=== PATIENT | female | born 1955 | race Caucasian/White ===

== ENCOUNTER → 2020-07-03 | Day surgery (SDC) | payer BC ==
[~2020-07-03] MED LIST: Cyclobenzaprine 10 MG Tab PO ONE; Dexamethasone 4 MG/ML 5 ML MDV ONE; HYDROmorphone 0.5 MG/0.5 ML Syringe IVPUSH PRN; Ketamine 500 mg/10 ML MDV ONE; Ketorolac 30 MG/ML SDV ONE; Lactated Ringers 1,000 ML IV SCH; Lidocaine 1% 4 ML ONE; Lidocaine 1%/Sod Bicarbonate in NS 8.4% 1 ML Syringe IDERM PRN; Midazolam 1 MG/ML 2 ML SDV ONE; Morphine 8 MG, EPINEPHrine 0.3 MG, Cefuroxime 750 MG, Ketorolac 30 MG, Sodium Chloride ... PRN; Ondansetron 4 MG/2 ML SDV IVPUSH PRN; Ondansetron 4 MG/2 ML SDV ONE; Propofol 200 MG/20 ML SDV ONE; Sodium Chloride 0.9% 10 ML Syringe FLUSH PRN; Vancomycin 1 GM SDV ONE; ceFAZolin 1 GM Vial ONE; fentaNYL 100 MCG/2 ML SDV ONE; oxyCODONE 5 MG Tab PO PRN; traMADol 50 MG Tab PO PRN
--- NOTE | 2020-07-03 07:45 | PCM.PREANE ---
Preanesthetic Assessment - Procedure Proposed Procedure: Left Hip arthroplasty - Anesthesia/Transfusion/Family Hx Anesthesia History: Prior Anesthesia Without Reaction Family History of Anesthesia Reaction: No Transfusion History: No Prior Transfusion(s) - Review of Systems General: No Symptoms Pulmonary: No Symptoms Cardiovascular: No Symptoms Gastrointestinal: No Symptoms Neurological: No Symptoms Other: Reports: None - Physical Assessment NPO Status Date: 07/02/20 NPO Status Time: 22:00 Height: 1.73 m Weight: 83 kg ASA Class: 2 Mental Status: Alert & Oriented x3 Airway Class: Mallampati = 1 Thyro-Mental Finger Breadths: 3 Mouth Opening Finger Breadths: 3 ROM/Head Extension: Full Lungs: Clear to Auscultation, Normal Respiratory Effort Cardiovascular: Regular Rate, Regular Rhythm - Allergies Allergies/Adverse Reactions: Allergies Allergy/AdvReac Type Severity Reaction Status Date / Time codeine Allergy Hives Verified 06/30/20 14:09 Penicillins Allergy Hives Verified 06/30/20 14:09 Iodinated Contrast Media AdvReac Tachycardia Verified 06/30/20 15:28 - Blood Blood Available: No - Acknowledgements Anesthesia Type Planned: Spinal Pt an Appropriate Candidate for the Planned Anesthesia: Yes Alternatives and Risks of Anesthesia Discussed w Pt/Guardian: Yes Pt/Guardian Understands and Agrees with Anesthesia Plan: Yes PreAnesthesia Questionnaire HEENT History: Reports: Impaired Vision Cardiovascular History: Reports: High Cholesterol Respiratory History: Reports: None Gastrointestinal History: Reports: None Genitourinary History: Reports: None FLITCH HANGER History: Reports: None Musculoskeletal History: Reports: Osteoarthritis Neurological History: Reports: None Psychiatric History: Reports: None Endocrine/Metabolic History: Reports: Hypothyroidism Hematologic History: Reports: None Immunologic History: Reports: None Oncologic (Cancer) History: Reports: None Dermatologic History: Reports: None - Past Surgical History HEENT Surgical History: Reports: None Cardiovascular Surgical History: Reports: None Respiratory Surgical History: Reports: None GI Surgical History: Reports: Colonoscopy Female Surgical History: Reports: Section Male Surgical History: Reports: None Endocrine Surgical History: Reports: None Neurological Surgical History: Reports: None Musculoskeletal Surgical History: Reports: Hip Replacement, Shoulder Replacement Oncologic Surgical History: Reports: None Dermatological Surgical History: Reports: None - SUBSTANCE USE Tobacco Use Status *Q: Former Tobacco User Recreational Drug Use History: No - HOME MEDS Home Medications: Home Meds Ascorbic Acid [Vitamin C] 500 mg PO DAILY 06/30/20 [History] Cholecalciferol (Vitamin D3) [Vitamin D3] 5,000 unit PO DAILY 06/30/20 [History] Docusate Sodium [Stool Softener] 100 mg PO DAILY PRN 06/30/20 [History] Levothyroxine Sodium [Synthroid] 112 mcg PO DAILY 06/30/20 [History] Multivitamin 1 tab PO DAILY 06/30/20 [History] Ubidecarenone [Coq-10] 100 mg PO DAILY 06/30/20 [History] calcium polycarbophiL [Fiber Tabs] 625 mg PO DAILY PRN 06/30/20 [History] polyethylene glycoL 3350 [MiraLAX] 1 dose PO DAILY PRN 06/30/20 [History] Aspirin [Aspirin EC] 325 mg PO BID #70 tab 07/03/20 [Rx] Cyclobenzaprine [Flexeril] 10 mg PO BID PRN #20 tab 07/03/20 [Rx] traMADol [Ultram] 50 - 100 mg PO Q6H PRN #40 tab 07/03/20 [Rx] - CURRENT (IN HOUSE) MEDS Current Meds: Current Medications Morphine Sulfate 8 mg/Epinephrine HCl 0.3 mg/Cefuroxime Sodium 750 mg/Ketorolac Tromethamine 30 mg/Sodium Chloride 7.9 ml 0 mg .XX ASDIRECTED PRN PRN Reason: Pain Stop: 07/03/20 15:00 Lactated Ringer's (Ringers, Lactated) 1,000 mls @ 125 mls/hr IV ASDIRECTED SUSAN Stop: 07/03/20 23:00 Lidocaine/Sodium Bicarbonate (Buffered Lidocaine 1% In Ns 8.4%) 0.25 ml IDERM ONETIME PRN PRN Reason: Prior to IV Start Stop: 07/03/20 18:00 Sodium Chloride (Saline Flush) 10 ml FLUSH ASDIRECTED PRN PRN Reason: Keep Vein Open Stop: 07/03/20 18:00 Discontinued Medications Cefazolin Sodium (Ancef) Confirm Administered Dose 2 gm .ROUTE .STK-MED ONE Stop: 07/03/20 07:15 Dexamethasone (Dexamethasone) Confirm Administered Dose 20 mg .ROUTE .STK-MED ONE Stop: 07/03/20 07:15 Fentanyl (Sublimaze) Confirm Administered Dose 100 mcg .ROUTE .STK-MED ONE Stop: 07/03/20 07:09 Lidocaine HCl (Xylocaine-Mpf 1%) Confirm Administered Dose 4 mls @ as directed .ROUTE .STK-MED ONE Stop: 07/03/20 07:15 Midazolam HCl (Versed 1 Mg/Ml) Confirm Administered Dose 2 mg .ROUTE .STK-MED ONE Stop: 07/03/20 07:09 Ondansetron HCl (Zofran) Confirm Administered Dose 4 mg .ROUTE .STK-MED ONE Stop: 07/03/20 07:15 Propofol (Diprivan 20 Ml) Confirm Administered Dose 600 mg .ROUTE .STK-MED ONE Stop: 07/03/20 07:08 Tranexamic Acid (Cyklokapron) Confirm Administered Dose 1,000 mg .ROUTE .STK-MED ONE Stop: 07/03/20 07:19 Vancomycin HCl (Vancomycin) Confirm Administered Dose 1 gm .ROUTE .STK-MED ONE Stop: 07/03/20 07:19
[2020-07-03] MEDS: fentaNYL 100 MCG/2 ML SDV IVPUSH PRN ×2 (10:29→10:44)
--- NOTE | 2020-07-03 11:56 | PCM.POSTAN ---
POST ANESTHESIA ASSESSMENT - MENTAL STATUS Mental Status: Alert, Oriented - VITAL SIGNS Vital Signs: Last Vital Signs Temp 36.7 C 07/03/20 11:30 Pulse 68 07/03/20 11:30 Resp 17 07/03/20 11:30 BP 144/57 H 07/03/20 11:30 Pulse Ox 96 07/03/20 11:30 - RESPIRATORY Respiratory Status: Respiratory Rate WNL, Airway Patent, O2 Saturation Stable - CARDIOVASCULAR CV Status: Pulse Rate WNL, Blood Pressure Stable - GASTROINTESTINAL GI Status: No Symptoms - PAIN Pain Score: 3 - POST OP HYDRATION Hydration Status: Adequate & Stable - OBSERVATIONS Free Text/Narrative:: Patient doing well, eating in bed. Denies any anesthesia complications.
--- NOTE | 2020-07-03 13:21 | CR ---
Pelvis and left hip: AP view of the pelvis was obtained as well as crosstable lateral views of the left hip. Comparison: Prior CT pelvis study of 06/16/20. Findings: Right hip prosthesis is noted. Left hip prosthesis is seen which has been recently placed and shows evidence of surrounding soft tissue air. Degenerative change within the lumbar spine is seen. Pseudoarticulation is seen in the left transverse process to the sacrum. No acute osseous abnormality is otherwise seen. Impression: 1. Satisfactory appearance of recently placed left hip prosthesis. 2. Other findings as noted above which are chronic. Diagnostic code #2 MTDD
--- NOTE | 2020-07-03 13:33 | PCM48HPAN ---
Post Anesthesia Note - EVALUATION WITHIN 48HRS OF ANESTHETIC Vital Signs in Normal Range: Yes Patient Participated in Evaluation: Yes Respiratory Function Stable: Yes Airway Patent: Yes Cardiovascular Function Stable: Yes Hydration Status Stable: Yes Pain Control Satisfactory: Yes Nausea and Vomiting Control Satisfactory: Yes Mental Status Recovered: Yes Vital Signs: Last Vital Signs Temp 98.1 F 07/03/20 12:00 Pulse 78 07/03/20 12:21 Resp 16 07/03/20 12:21 BP 110/94 H 07/03/20 12:21 Pulse Ox 95 07/03/20 12:21 - COMMENTS/OBSERVATIONS Free Text/Narrative:: slight nausea- feels shaky- up with PT.
--- NOTE | 2020-07-09 16:59 | PCM.OPNOTE ---
- General Post-Op/Procedure Note Date of Surgery/Procedure: 07/03/20 Operative Procedure(s): left total hip arthroplasty with [employer] Pre Op Diagnosis: left hip osteoarthrosis Post-Op Diagnosis: Same Anesthesia Technique: Local, MAC, Spinal Primary Surgeon: Carlton Cotton Anesthesia Provider: Duane Waggoner Sports Medicine Coordinator: Rina Mcbride Sports Medicine Coordinator: Judi Warren EBL in mLs: 300 Complications: None Condition: Good Free Text/Narrative:: 50 cup 36+0 5 stem
--- NOTE | 2020-07-09 17:52 | OR ---
DATE OF OPERATION: 07/03/2020 SURGEON: Carlton Cotton MD OPERATION PERFORMED: Left total hip arthroplasty with [employer] robot[employer]. PREOPERATIVE DIAGNOSIS: Left hip osteoarthrosis. POSTOPERATIVE DIAGNOSIS: Left hip osteoarthrosis. ANESTHESIA: Local MAC with spinal. ANESTHESIA PROVIDER: Duane Waggoner. ASSISTANTS: Rina Mcbride PA-C and Judi Warren LPN ESTIMATED BLOOD LOSS: 300 mL. COMPLICATIONS: None. CONDITION: Stable. IMPLANTS: 1. Sharita size 50 mm solid Tritanium II acetabular cup. 2. [place] size 36 +0 Biolox femoral head. 3. Sharita size 5 Accolade II stem. 4. Sharita size 36 flat acetabular liner. DESCRIPTION OF PROCEDURE: The patient was identified in the preoperative holding area. Proper site was marked and identified by the surgeon. The patient was taken back to the operating theater where after adequate anesthesia, the patient was placed in the right lateral decubitus position. Axillary roll was placed. Pegs were then placed and everything was well padded. The patient's gluteal fold was parallel to the floor. Left hip was then sterilely prepped and draped in the usual sterile fashion. OR time-out was performed. The patient received 2 g of IV Ancef. After this was completed, a few fingerbreadths back from the ASIS, three 4-0 pins were placed in the iliac crest for the [place] [employer] robot[employer]. The array was then placed making sure it was down all the way onto bone. At this time, a standard posterior incision was made. This was taken down to the IT band and gluteal fascia which was incised along the incisional length. The checkpoint was placed in the greater tuberosity. Charnley retractor was placed. Takedown of the short external rotators was done from the level of the piriformis down to the lesser trochanter. Hip was then dislocated and neck cut was completed and found to be adequate. Attention was turned to the acetabulum. Anterior and posterior acetabular retractors were placed. Circumferential removal of the labrum was done at this time as well as removal of pulvinar. The patient then had 15 checkpoints done intra-articularly in the acetabulum as well as 15 surrounding the acetabulum extra-articularly. At this time, the plan was in place. The checkpoints were found to be adequate and the 50 mm reamer was loaded onto the [employer] robotic arm. This was then locked into place and reaming was done until all green was gone off the [place] robotic screen. The 50 mm cup was then impacted into place using the Sharita robotic arm and it was locked into place at 45 degrees of inclination and 20 degrees of anteversion. At this time, the 36 flat liner was impacted into place and attention was turned to the femur. A box chisel was used out laterally. Starter awl was placed down the canal starting with the 0 broach. I was able to broach up to a size 5 which was found to be rotationally and vertically stable. A 36+ 0 trial implants were then placed. The patient had adequate baptism of leg- lengths and was stable throughout range of motion. Bone hook was used to dislocate the trial implants. Size 5 Accolade II stem was then impacted into place and a 36+ 0 Biolox femoral head was impacted into place. Hip was then relocated. #5 Ethibond sutures were used for closure of the short external rotators and capsule. Periarticular injection was completed. 450 mL of Irrisept irrigation was irrigated through the hip along with 1 L pulse lavage irrigation with Ancef. Topical tranexamic acid and vancomycin powder were applied. A #2 barbed suture was used for closure of the IT band and gluteal fascia, 2-0 Vicryl was used subcutaneously, and Prineo was used for closure of the skin. The patient tolerated the procedure well and was sent to the PACU in stable condition. We did make sure to remove all checkpoints and arrays before ending the procedure. MMODAL /[id number]
== END | disposition home or self-care (01) ==
LOC: JD.SDS 07:04
PROVIDERS: ATTEND Orthopaedic Surgery
DX: M16.12 Unilateral primary osteoarthritis, left hip (principal); E03.9 Hypothyroidism, unspecified; E78.2 Mixed hyperlipidemia; Z88.0 Allergy status to penicillin; Z88.5 Allergy status to narcotic agent; Z78.0 Asymptomatic menopausal state; L57.0 Actinic keratosis; Z88.6 Allergy status to analgesic agent; Z96.641 Presence of right artificial hip joint; Z98.890 Other specified postprocedural states; Z20.822 Contact with and (suspected) exposure to COVID-19; Z79.890 Hormone replacement therapy; Z79.82 Long term (current) use of aspirin; Z01.812 Encounter for preprocedural laboratory examination; Z87.891 Personal history of nicotine dependence; Z79.899 Other long term (current) drug therapy
CPT/HCPCS: 01214; 36415; 73501-26-LT; 73501-LT; 86850; 86900; 86901; 97110-GP; 97161-GP; 97165-GO; A9270-GY; C1713; C1776; J0171; J0690; J0697; J1100; J1885; J2250; J2270; J2405; J2704; J3010; J3370; J7120

== ENCOUNTER 2023-06-26 05:45 | Day surgery (SDC) | payer MEDICARE, BC ==
[~2023-06-26 05:45] MED LIST changes: -Cyclobenzaprine 10 MG Tab PO ONE; -Dexamethasone 4 MG/ML 5 ML MDV ONE; -HYDROmorphone 0.5 MG/0.5 ML Syringe IVPUSH PRN; -Ketamine 500 mg/10 ML MDV ONE; -Ketorolac 30 MG/ML SDV ONE; -Lactated Ringers 1,000 ML IV SCH; -Lidocaine 1% 4 ML ONE; -Lidocaine 1%/Sod Bicarbonate in NS 8.4% 1 ML Syringe IDERM PRN; -Midazolam 1 MG/ML 2 ML SDV ONE; -Morphine 8 MG, EPINEPHrine 0.3 MG, Cefuroxime 750 MG, Ketorolac 30 MG, Sodium Chloride ... PRN; -Ondansetron 4 MG/2 ML SDV IVPUSH PRN; -Ondansetron 4 MG/2 ML SDV ONE; -Propofol 200 MG/20 ML SDV ONE; +Sodium Chloride 0.9% 10 ML Syringe FLUSH SCH; -Vancomycin 1 GM SDV ONE; -ceFAZolin 1 GM Vial ONE; -fentaNYL 100 MCG/2 ML SDV ONE; -oxyCODONE 5 MG Tab PO PRN; -traMADol 50 MG Tab PO PRN
[2023-06-26] MEDS: Lactated Ringers 1,000 ML IV SCH (06:05)
[2023-06-26] MEDS ORDERED: Ondansetron 4 MG/2 ML SDV IVPUSH PRN (06:05)
[2023-06-26] MEDS ORDERED: HYDROmorphone 0.5 MG/0.5 ML Syringe IVPUSH PRN (06:05)
[2023-06-26] MEDS ORDERED: Midazolam 1 MG/ML 2 ML SDV ONE (06:15)
[2023-06-26] MEDS ORDERED: ceFAZolin 2 GM Vial ONE (06:16)
[2023-06-26] MEDS ORDERED: fentaNYL 100 MCG/2 ML SDV ONE (06:16)
[2023-06-26] MEDS ORDERED: Lidocaine 1% 2 ML ONE (06:16)
[2023-06-26] MEDS ORDERED: Propofol 200 MG/20 ML SDV ONE ×3 (06:16→08:11)
[2023-06-26] MEDS ORDERED: Ropivacaine 0.5% 5 MG/ML 30 ML SDV ONE (06:34)
[2023-06-26] MEDS ORDERED: EPINEPHrine 1 MG/ML SDV ONE (07:39)
[2023-06-26] MEDS ORDERED: Lactated Ringers 1,000 ML ONE (07:39)
[2023-06-26] MEDS ORDERED: ePHEDrine 50 MG/ML SDV ONE (07:39)
[2023-06-26] MEDS: Morphine 8 MG, EPINEPHrine 0.3 MG, Cefuroxime 750 MG, Ketorolac 30 MG, Sodium Chloride ... PRN (08:01)
[2023-06-26] MEDS ORDERED: Ketorolac 30 MG/ML SDV ONE (08:02)
[2023-06-26] MEDS: Tranexamic Acid 1,000 MG/10 ML Vial ONE (08:07)
[2023-06-26] MEDS: Vancomycin 1 GM SDV ONE (08:07)
[2023-06-26] MEDS: fentaNYL 100 MCG/2 ML SDV IVPUSH PRN (09:14)
== END 2023-06-26 13:40 | disposition home or self-care (01) ==
LOC: JD.SDS 05:45
PROVIDERS: ATTEND Orthopaedic Surgery
DX: M17.12 Unilateral primary osteoarthritis, left knee (principal); E03.9 Hypothyroidism, unspecified; Z79.899 Other long term (current) drug therapy; Z88.0 Allergy status to penicillin; Z88.5 Allergy status to narcotic agent; Z87.891 Personal history of nicotine dependence
CPT/HCPCS: 0055T; 27447; 73560; 97116; 97161; C1713; C1776; J0171; J0690; J0697; J1885; J2250; J2270; J2704; J2795; J3010; J3370; J7030; J7120; 01402; J3490